=== PATIENT | male | born 1985 | race Caucasian/White ===

== ENCOUNTER 2022-12-12 21:23 | Emergency (ER) | payer MEDICAID ==
[~2022-12-12] VITALS: Ht 170.2 cm; Wt 80.7 kg
[2022-12-12 21:43] VITALS: BP 117/84
[2022-12-12] MEDS ORDERED: ONDANSETRON 4 MG ODT PO ONE (21:55)
--- NOTE | 2022-12-12 22:21 | NUR ---
PT TAKEN TO BED 6
--- NOTE | 2022-12-12 22:24 | NUR ---
ASSUMED CARE C/O OF DIFFUSED ABDO PAIN, NO N/V/D NO FEVER OR URINARY URGENCY OR PAIN
[2022-12-12] MEDS ORDERED: ONDANSETRON 4 MG ODT ONE (23:10)
--- NOTE | 2022-12-12 23:34 | NUR ---
Dr. Saenz examining patient.
--- NOTE | 2022-12-12 23:39 | NUR ---
AT TO EXAMINE PT
[2022-12-12] MEDS ORDERED: ACETAMINOPHEN EXTRA STRENGTH 500 MG TAB PO ONE (23:40)
[2022-12-12] MEDS ORDERED: ONDA-188 SL (23:41)
[2022-12-12] MEDS ORDERED: ACET-10509 PO (23:41)
--- NOTE | 2022-12-13 00:06 | NUR ---
Patient discharged with v/s stable. Written and verbal after care instructions given and explained. Patient alert, oriented and verbalized understanding of instructions. Ambulatory with steady gait. All questions addressed prior to discharge. ID band removed. Patient advised to follow up with PMD. Rx of ACETAMINOPHEN TAB AND ONDANSETRON given. Opportunity to ask questions provided and answered.
--- NOTE | 2022-12-13 00:06 | NUR ---
PAIN MEDS GIVEN C/O DICK
== END 2022-12-13 00:06 | disposition home or self-care (01) ==
LOC: MED 21:23
DX: R11.2 Nausea with vomiting, unspecified (principal); R51.9 Headache, unspecified; Z79.899 Other long term (current) drug therapy
CPT/HCPCS: 99283; Q0162